=== PATIENT | male | born 1940 | race Caucasian/White ===

== ENCOUNTER → 2017-03-28 | Day surgery (SDC) | payer MEDICARE, BC ==
[~2017-03-28] MED LIST: ACETAMINOPHEN500 M6 PO; ADVIL200 M1 PO; ASPIRIN PO; MILK OF MAGNESIA PO; PROBIOTIC1 EAC1 PO; TIROSINT50 MCG PO; TUMS200 MG; TUMS200 MG PO
--- NOTE | ~2017-03-28 | OR ---
Unit #: [id number] #: [id number] Patient: LOGAN MANUEL [id number] [address] [place], [place] [address] [id number] MR#: [id number] NAME: LOGAN MANUEL ROOM: Date of Procedure: 03/28/2017 Admission Date: 03/28/2017 Surgeon: Sabino Hurtado M.D. : 1940 Attending Physician: Sabino Hurtado M.D. Primary Care Physician: Maykel Ledezma M.D. OPERATIVE REPORT PREOPERATIVE DIAGNOSIS Enlarging subcutaneous mass, right mu-ism area. POSTOPERATIVE DIAGNOSIS Enlarging subcutaneous mass, right mu-ism area. PROCEDURE PERFORMED Excision of enlarging subcutaneous mass, right mu-ism area 1 cm (with layered closure). ANESTHESIA Versed 5 mg, Demerol 50 mg each IV push in divided dosages with continuous cardiac and O2 saturation monitoring, and 1% Xylocaine plain local anesthesia. FINDINGS The area was excised and sent to pathology. The lesion was consistent with a sebaceous cyst. SPECIMENS Sent to pathology. COMPLICATIONS None apparent. CONDITION The patient tolerated the procedure well. INDICATIONS FOR PROCEDURE The patient is a 77-year-old white male, who recently developed an enlarging subcutaneous mass in the right mu-ism area. He presents at this time for excision for pathologic diagnosis and treatment. DESCRIPTION OF PROCEDURE After obtaining informed consent, the patient was brought to the operating room and after adequate conscious sedation, had the right mu-ism area prepped and draped in a sterile fashion. It was anesthetized with 1% Xylocaine plain local anesthesia. An elliptical incision was made around the area with a knife and taken down through the subdermal tissues and subcutaneous tissues with electrocautery with good hemostasis. The wound was irrigated. Hemostasis was obtained with the Bovie and 4-0 Vicryl suture ligatures. The deep tissues were reapproximated with a 4-0 Vicryl. Unit #: [id number] #: [id number] Patient: LOGAN MANUEL The skin was closed with 4-0 nylon vertical mattress sutures. An occlusive dressing of Mastisol and Steri-Strips were placed over the wound. Needle counts, sponge counts, and instrument counts were all correct as reported by the scrub nurse x2. The patient went from the operating room to recovery room in stable condition. Dictated by... Jose Bustillo/mary TD: 03/28/2017 13:00 JOB #: [id number] CC: [facility] OPERATIVE REPORT Page 1 of 1 X Sabino Hurtado MD X PROCEDURE OPERATIVE NOTE
== END | disposition home or self-care (01) ==
LOC: CSUR 08:57
DX: L72.9 Follicular cyst of the skin and subcutaneous tissue, unspecified (principal); L08.9 Local infection of the skin and subcutaneous tissue, unspecified; L92.3 Foreign body granuloma of the skin and subcutaneous tissue; L57.8 Other skin changes due to chronic exposure to nonionizing radiation; Z88.2 Allergy status to sulfonamides; Z91.040 Latex allergy status; Z79.899 Other long term (current) drug therapy; Z98.890 Other specified postprocedural states
CPT/HCPCS: 88304; J2175; J2250